=== PATIENT | male | born 1985 | race American Indian/Alaskan Native ===

== ENCOUNTER 2019-04-16 18:35 | Emergency (ER) | payer MEDICAID, OTHER ==
[~2019-04-16] VITALS: Ht 177.8 cm; Wt 108.0 kg
[~2019-04-16 18:35] MED LIST: CLIN150C8 PO; CLIN300C33 PO; NO HOME MEDS
[2019-04-16 18:44] VITALS: BP 139/87
[2019-04-16] MEDS ORDERED: HYDROcodone/acetaminophen 10/325mg tab PO STA (18:47)
[2019-04-16] MEDS ORDERED: HYDR-3965 PO (20:56)
--- NOTE | 2019-04-16 21:06 | NUR ---
pt refused ortho orders, but cruthes provided as requested for ambulating
== END 2019-04-16 21:07 | disposition home or self-care (01) ==
LOC: ER 18:36
DX: S90.31XA Contusion of right foot, initial encounter (principal); F12.90 Cannabis use, unspecified, uncomplicated; Z88.0 Allergy status to penicillin; Z79.899 Other long term (current) drug therapy; Z79.2 Long term (current) use of antibiotics; X58.XXXA Exposure to other specified factors, initial encounter; Y93.89 Activity, other specified; Y92.89 Other specified places as the place of occurrence of the external cause; Y99.0 Civilian activity done for income or pay
CPT/HCPCS: 73630; 99283

== ENCOUNTER 2023-06-29 10:30 | Emergency (ER) | payer MEDICAID ==
[~2023-06-29] VITALS: Ht 175.3 cm; Wt 127.0 kg
[~2023-06-29 10:30] MED LIST changes: +CLIN-214 PO; -CLIN150C8 PO
[2023-06-29 10:46] VITALS: BP 130/70; PULSE 91; RESP 17; TEMP 97.8; O2SAT 96
[2023-06-29] MEDS ORDERED: CLIN-97 PO (10:54)
[2023-06-29] MEDS ORDERED: NAPR-56 PO (10:54)
== END 2023-06-29 11:01 | disposition home or self-care (01) ==
LOC: ER 10:30
DX: J02.9 Acute pharyngitis, unspecified (principal); F12.90 Cannabis use, unspecified, uncomplicated; Z88.0 Allergy status to penicillin; Z79.1 Long term (current) use of non-steroidal anti-inflammatories (NSAID); Z79.899 Other long term (current) drug therapy; Z79.2 Long term (current) use of antibiotics
CPT/HCPCS: 99283